=== PATIENT | female | born 1985 | race Caucasian/White ===

== ENCOUNTER 2020-11-04 15:57 | Emergency (ER) | END 2020-11-04 17:44 | disposition home or self-care (01) | LOC: CSHERS 15:57 | DX: S93.402A Sprain of unspecified ligament of left ankle, initial encounter (principal); X50.9XXA Other and unspecified overexertion or strenuous movements or postures, initial encounter ==

== ENCOUNTER 2022-10-06 16:57 | Emergency (ER) | payer OTHER, SELFPAY ==
[~2022-10-06 16:57] MED LIST: Iopamidol 300 61% 100 ML VIAL FS ONE
[2022-10-06] MEDS ORDERED: Ketorolac Tromethamine 30 MG/ML VIAL ONE (17:32)
[2022-10-06 17:56] LABS: #Basophils 0.1 10x3/uL (0.0-0.2); #Eosinphils 0.1 10x3/uL (0.0-0.5); #Monocytes 0.7 10x3/uL (0.0-1.1); #Neutrophils 7.2 10x3/uL (1.5-8.4); %Basophils 0.5 % (0.0-2.0); %Eosinophils 1.1 % (0.0-6.0); %Lymphocytes 32.9 % (18.0-47.0); Hemoglobin 13.6 g/dL (12.0-15.5); Mean Corpuscular HGB CONC 34.5 g/dL (32.0-36.0); Mean Corpuscular Hemoglobin 29.3 pg (27.0-33.0); Mean Corpuscular Volume 84.9 fl (81.6-98.3); Mean Platelet Volume 9.4 fl (7.4-10.4); Platelet Count 291 10x3/uL (150-450); RBC Distribution Width 13.1 % (11.5-14.5); Red Blood Cell (RBC) Count 4.64 10x6/uL (3.90-5.03); White Blood Cell (WBC) Count 12.2 10x3/uL (3.5-10.5)
[2022-10-06 18:05] LABS: BHCG - Serum Negative (NEGATIVE); Pregs Control Background? CLEAR/WHITE (CLR/WHITE); Pregs Control Bar Appear? YES (CONTROL BAR)
[2022-10-06 18:11] LABS: ALT (SGPT) 23 U/L (8-55); AST (SGOT) 17 U/L (5-34); Albumin 4.4 g/dL (3.5-5.0); Alkaline Phosphatase 80 U/L (40-110); Anion Gap 16 mmol/L (10-20); BUN (Urea Nitrogen) 11 mg/dL (7.0-18.7); Bilirubin, Total 0.8 mg/dL (0.2-1.2); Calc. Creatinine Clearance 0 mL/min (70-130); Calcium 9.5 mg/dL (7.8-10.44); Carbon Dioxide 22 mmol/L (22-29); Chloride 109 mmol/L (98-107); Estimated GFR 74; Globulin 2.5 g/dL (2.4-3.5); Glucose 101 mg/dL (70-105); Potassium 3.5 mmol/L (3.5-5.1); Protein, Total 6.9 g/dL (6.0-8.3); Sodium 143 mmol/L (136-145)
[2022-10-06 19:05] LABS: Bilirubin 6 (Negative); Blood, Urine 10 (Negative); Clarity Clear (Clear); Glucose, Urine (Dipstick) Normal (Negative); Ketone, Urine Negative (Negative); Leukocyte 25 (Negative); Nitrite Negative (Negative); Protein, Urine (Dipstick) 15 mg/dl (Neg-Trace); pH, Urine 6.5 (5.0-9.0)
[2022-10-06 19:15] LABS: RBC/HPF 0-3 HPF (0-3); WBC/HPF 0-3 HPF (0-3)
[2022-10-06 19:16] LABS: Bacteria/HPF None Seen HPF (None Seen); Squamous Epithelial 0-3 HPF (0-3)
[2022-10-06] MEDS ORDERED: Ondansetron PF 4 MG/2 ML Vial ONE (19:25)
[2022-10-06] MEDS ORDERED: Morphine 2 MG/ML VIAL ONE (20:24)
== END 2022-10-06 20:45 | disposition home or self-care (01) ==
LOC: CSHERS 16:57
DX: N39.0 Urinary tract infection, site not specified (principal); D72.829 Elevated white blood cell count, unspecified
CPT/HCPCS: 74177; 76856; 80053; 81003; 81015; 84703; 85025; 87086; 96374; 96375; J1885; J2272; J2405; Q9967